=== PATIENT | female | born 2000 | race American Indian/Alaskan Native ===

== ENCOUNTER 2024-09-28 20:47 | Emergency (ER) | payer SELFPAY ==
[2024-09-28 20:57] VITALS: BP 111/61; PULSE 135; RESP 16; TEMP 37.7; O2SAT 100
--- NOTE | 2024-09-28 21:20 | ED_ITS ---
HPI - General Adult General Chief complaint: Fever Stated complaint: Fever, sent from [facility]-Rash Time Seen by Provider: 09/28/24 21:15 Source: patient Mode of arrival: ambulatory Limitations: no limitations History of Present Illness HPI narrative: This is a 24-year-old female who presents to the ED for chief complaint of fever and rash onset x1 day. Patient states that she was seen in urgent care today who referred her over to the ER due to having the fever along with the rash to the face, arms, legs. States that she just finished a course of Bactrim yesterday for a left breast cellulitis that was diagnosed 10 days ago. Denies recent travel. She is a local student and states that she has fully up-to-date vaccinations. Denies mucosal involvement of her rash or any rash to the groin. States she did have 1 episode of vomiting yesterday but no further nausea or diarrhea. States this started with a fever of 102? F yesterday and then started noticing rash to the face, seemingly spreading to the arms and legs. Related Data Allergies Allergy/AdvReac Type Severity Reaction Status Date / Time No Known Allergies Allergy Verified 09/28/24 20:48 Review of Systems 2 Review of Systems: All systems as dictated in HPI Exam 2 Narrative: GENERAL: Well-appearing, well-nourished, and in no acute distress. HEAD: Normocephalic, atraumatic. EYES: PERRLA and EOMI. ENT: Nares clear, no rhinorrhea or epistaxis. Mucous membranes moist. Oropharynx without tonsillar hypertrophy exudate or other lesions. NECK: Supple. No adenopathy or masses. CHEST: No respiratory distress. Clear to auscultation. No wheezes rales or rhonchi HEART: Mildly tachycardic rate and regular rhythm. No murmur heard. Normal peripheral pulses. ABDOMEN: Soft, nontender, nondistended, normal active bowel sounds. MSK: Normal range of motion. No edema. SKIN: Maculopapular morbilliform rash to the face, upper torso, back, upper arms. It is blanching and some splotchy overall. There is minimal to no rash to the abdomen or legs. No tenderness. No mucosal involvement of the rash on the face. NEURO: Alert and oriented x4. No focal deficits. PSYCH: Normal mood and affect. Course Vital Signs Vital signs: Vital Signs Temperature 100 F H 09/28/24 20:57 Pulse Rate 135 H 09/28/24 20:57 Respiratory Rate 16 09/28/24 20:57 Blood Pressure 111/61 09/28/24 20:57 Pulse Oximetry 100 09/28/24 20:57 Oxygen Delivery Room Air 09/28/24 20:57 Temperature 100 F H 09/28/24 20:57 Pulse Rate 101 H 09/28/24 22:12 Respiratory Rate 16 09/28/24 22:12 Blood Pressure 105/73 09/28/24 22:12 Pulse Oximetry 100 09/28/24 22:15 Oxygen Delivery Room Air 09/28/24 20:57 Medical Decision Making MDM Narrative Medical decision making narrative: This is a 24-year-old female who presents to the ED for chief complaint of fever, rash fractures complaining Bactrim prescription. Vitals arrival do show tachycardia and elevated temperature of a 100? F. exam remarkable for the above with maculopapular, morbilliform rash to the face, upper torso and upper arms. Does not appear to be erythroderma. Does not appear to involve mucosal surfaces. She does not appear toxic or acutely ill, resting comfortably. Lab work does show leukopenia report count of 2.4. No eosinophilia or other abnormalities on the CBC differential. Low concern for DRESS syndrome CRP only slightly elevated at 1.5. CMP shows slight elevation in AST and ALT, however otherwise unremarkable. Presentation most likely consistent with drug eruption morbilliform rash due to Bactrim. This should resolve over the next several days with previous completion of the Bactrim prescription. Rx for topical steroids given for rash. Patient will be discharged in stable condition. Supportive measures discussed and return precautions given. Patient is understanding and agreeable with plan for discharge with PCP follow-up. Vital Signs Vital Signs: Vital Signs Temperature 100 F H 09/28/24 20:57 Pulse Rate 135 H 09/28/24 20:57 Respiratory Rate 16 09/28/24 20:57 Blood Pressure 111/61 09/28/24 20:57 Pulse Oximetry 100 09/28/24 20:57 Oxygen Delivery Room Air 09/28/24 20:57 Temperature 100 F H 09/28/24 20:57 Pulse Rate 101 H 09/28/24 22:12 Respiratory Rate 16 09/28/24 22:12 Blood Pressure 105/73 09/28/24 22:12 Pulse Oximetry 100 09/28/24 22:15 Oxygen Delivery Room Air 09/28/24 20:57 Lab Data 09/28/24 21:49 09/28/24 21:49 Labs: Lab Results 09/28/24 09/28/24 09/28/24 Range/Units 21:49 22:49 22:52 WBC 2.4 L (4.5-10.0) K/mm3 RBC 4.73 (4.2-5.4) M/mm3 Hgb 11.4 L (12.0-15.0) g/dL Hct 36.0 L (37.0-47.0) % MCV 76.1 L (80-100) fl MCH 24.1 L (26-34) pg MCHC 31.7 L (32-36) g/dl RDW 13.8 (11.5-14.5) % Plt Count 127 L (150-375) k/mm3 MPV 10.4 (7.4-10.4) fl Immature Gran % (Auto) 0.4 (0-0.5) % Neut % (Auto) 70.4 (45.5-73.1) % Lymph % (Auto) 25.0 (18.3-44.2) % [place] % (Auto) 3.8 (2.6-8.5) % Eos % (Auto) 0.4 (0-4.4) % Baso % (Auto) 0.0 L (0.2-1.2) % Lymph # (Auto) 0.60 L (0.9-3.2) K/mm3 [place] # (Auto) 0.1 (0.1-0.6) K/mm3 Eos # (Auto) 0.0 (0-0.3) K/mm3 Baso # (Auto) 0.0 (0.0-0.1) K/mm3 Abs Immat Gran (auto) 0.01 (0.00-0.031) K/mm3 Absolute Neuts (auto) 1.7 (1.3-6.7) K/mm3 Absolute Nucleated RBC 0.000 (0.0-0.012) K/mm3 Nucleated RBC % 0.0 (0.0-0.2) % Sodium 132 L (137-145) mmol/L Potassium 3.7 (3.4-5.0) mmol/L Chloride 99 (98-107) mmol/L Carbon Dioxide 23 (22-30) mmol/L Anion Gap 10 (4-12) mmol/L BUN 9 (7-17) mg/dL Creatinine 0.74 (0.7-1.0) mg/dL Estim Creat Clear Calc 90 ml/min Estimated GFR > 60 (59 - ) Glucose 114 H (65-110) mg/dL Calcium 8.7 (8.4-10.2) mg/dL Total Bilirubin 0.2 (0.2-1.3) mg/dL AST 81 H (14-36) U/L ALT 42 H (6-35) U/L Alkaline Phosphatase 57 (38-126) U/L C-Reactive Protein 1.5 H (<1.0) mg/dL Total Protein 8.0 (6.3-8.2) g/dL Albumin 4.1 (3.5-5.1) g/dL Urine Color Yellow (Yellow) Urine Appearance Clear (Clear) Urine pH 6.5 (5.0-9.0) Ur Specific [place] 1.007 (1.001-1.035) Urine Protein Negative (Negative) mg/dL Urine Glucose (UA) Negative (Negative) mg/dL Urine Ketones Negative (Negative) mg/dL Ur Blood (Man) Negative (Negative) Urine Nitrate Negative (Negative) Urine Bilirubin Negative (Negative) Urine Urobilinogen 0.2 (<2.0) mg/dL Leukocyte Esterase Rfl Negative (Negative) LOU/UL POC Urine HCG, Qual Negative (Negative) Discharge Plan Discharge Clinical Impression: Adverse drug reaction Patient Disposition: Home, Self-Care Condition: Stable Instructions: Antibiotic Form Additional Instructions: Your exam today is probably indicating a drug reaction to the Bactrim. Please use a topical steroid cream for itchy areas of rash. This rash should self resolve as long as you are not taking anymore Bactrim(trimethoprim sulfamethoxazole). Continue taking Tylenol 500 mg and ibuprofen 600 mg every 6 hours as needed for fevers. Follow-up with primary care doctor on this issue. If you have any new or worsening symptoms please return to the ER for further evaluation. Patient Language: Romanian Prescriptions: New triamcinolone acetonide 0.1 % cream 1 applic topical BID Qty: 15 0RF Follow-up/Referrals: PHYSICIAN,PASTRY WRAPPER [Primary Care Provider] - Time of Disposition: 23:18
--- OUTSIDE RECORDS SUMMARY | 2024-09-28 21:23 | XMS_ITS | Encounter Summary ---
Author Organization [facility] Healthcare Address [address] [place] [address] Care Team Providers Care Kindergartners Helper Name Role Phone Unknown, Notinfile Primary Care Provider Unavail able Reason for Visit * Reason Comments Fever Body aches, Fever st arted last PM and hives on face, hands and legs started yesterday. Fever up to 103 Encounter Details Date Type Department Care Team (Late st Contact Info) Description 09/28/2024 6:15 PM RARE/ENDANGERED SPECIES SPECIALIST Office Visit [facility] Medical [facility] Convenient Care at [address] [address] Mynor Morillo NP [address] [place] [address] [address] [place] [address] Fever, unspecified fever cause (Primary Dx) Social History Tobacco Use Types Packs/Day Years Used Date Smoking Tobacco: Never Assessed Comments Unknown Sex and Gender Information Value Date Recorded Sex Assigned at Not on file Legal Sex Female 7:34 PM RARE/ENDANGERED SPECIES SPECIALIST Gender Identity Not on file Sexual Orientation Not on file documented as of this encounter Last Filed Vital Signs Vital Sign Reading Time Taken Comments Blood Pressure 118/72 09/28/2024 6:00 PM RARE/ENDANGERED SPECIES SPECIALIST Pulse 128 09/28/2024 6:00 PM RARE/ENDANGERED SPECIES SPECIALIST Temperature 37.8 C (100.1 F) 09/28/2024 6:00 PM RARE/ENDANGERED SPECIES SPECIALIST Respiratory Rate 20 09/28/2024 6:00 PM RARE/ENDANGERED SPECIES SPECIALIST Oxygen Saturation 98% 09/28/2024 6:00 PM RARE/ENDANGERED SPECIES SPECIALIST Inhaled Oxygen Concentration - - Weight 71.7 kg (158 lb) 09/28/2024 6:00 PM RARE/ENDANGERED SPECIES SPECIALIST Height - - Body Mass Index - - documented in this encounter Patient Instructions * Patient Instructions* Mynor Morillo NP - 09/28/2024 6:15 PM RARE/ENDANGERED SPECIES SPECIALIST Results for orders placed or performed in visit on 09/28/24 POC Influenza A/B, COVID-19 antigen Collection Time: 09/28/24 6:22 PM Result Value Ref Range Influenza A Ag, POC Negative Negative Influenza B Ag, POC Negative Negative COVID-19 Ag POC Presumptive Negative Presumptive Negative, Invalid POCT rapid strep A Collection Time: 09/28/24 6:22 PM Result Value Ref Range Rapid Strep A, POC Negative Negative Recommend pt go to ED for further evaluation due to temp of 102F and rash. /ENDANGERED SPECIES SPECIALIST documented in this encounter Plan of Treatment Not on file documented as of this encounter Procedures Procedure Name Priority Date/Time Associated Diagnosis Comments POC INFLUENZA A/B, COVID-19 ANTIGEN Routine 09/28/2024 6:22 PM RARE/ENDANGERED SPECIES SPECIALIST Fever, unspecified fever cause POCT RAPID STREP Routine 09/28/2024 6:22 PM RARE/ENDANGERED SPECIES SPECIALIST Fever, unspecified fever cause documented in this encounter Results * POCT rapid strep A (09/28/2024 6:22 PM RARE/ENDANGERED SPECIES SPECIALIST) Rapid Strep A, POC Negative Negative Swab 09/28/2024 6:22 PM RARE/ENDANGERED SPECIES SPECIALIST Mynor Morillo NP POINT OF CARE TEST ORDERABLES F inal Result * POC Influenza A/B, COVID-19 antigen (09/28/2024 6:22 PM RARE/ENDANGERED SPECIES SPECIALIST) Influenza A Ag, POC Negative Negative [facility] Influenza B Ag, POC Negative Negative [facility] COVID-19 Ag POC Presumptive Negative Presumptive Negative, Invalid [facility] Nasal 09/28/2024 6:22 PM RARE/ENDANGERED SPECIES SPECIALIST us Mynor Morillo NP POINT OF CARE TEST ORDERABLES F inal Result [facility] [address] [place] [address] documented in this encounter Visit Diagnoses Diagnosis Fever, unspecified fever cause- Primary documented in this encounter Additional Health Concerns Infection Onset Date Last Indicated Resolved Time COVID: Suspected 09/28/2024 09/28/2024 09/28/2024 6:23 PM RARE/ENDANGERED SPECIES SPECIALIST documented as of this encounter Care Teams Kindergartners Helper Relationship Specialty Start Date End Date Unknown, Notinfile PCP - General 09/17/24 documented as of this encounter
--- OUTSIDE RECORDS SUMMARY | 2024-09-28 21:23 | XMS_ITS | Clinical Summary ---
Author Organization [address] [address] Care Team Providers Care Knuckle Strap Sewer Name Role Phone Unknown, Notinfile Primary Care Provider Unavail able Allergies No known active allergies Medications sulfamethoxazol e-trimethoprim (BACTRIM DS) 800-160 mg per tabletIndicatio ns:Cellulitis of left breast Take 1 tablet by mouth 2 (two) times a day for 10 days 20 tablet 09/17/2024 Active Problems No known active problems Encounters Date Type Department Care Team Description 09/28/2024 6:15 PM MEDICAL DRIVER Office Visit [facility] Medical [facility] Convenient Care at [address] [address] Mynor Morillo NP Fever, unspecified fever cause (Primary Dx) 09/17/2024 7:45 PM MEDICAL DRIVER Office Visit [facility] Care at [address] [address] Vikki Ratliff NP Cellulitis of left breast (Primary Dx) from Last 3 Months Social History Tobacco Use Types Packs/Day Years Used Date Smoking Tobacco: Never Assessed Comments Unknown Sex and Gender Information Value Date Recorded Sex Assigned at Not on file Legal Sex Female 7:34 PM MEDICAL DRIVER Gender Identity Not on file Sexual Orientation Not on file Obstetrics History Last Filed Vital Signs Vital Sign Reading Time Taken Comments Blood Pressure 118/72 09/28/2024 6:00 PM MEDICAL DRIVER Pulse 128 09/28/2024 6:00 PM MEDICAL DRIVER Temperature 37.8 C (100.1 F) 09/28/2024 6:00 PM MEDICAL DRIVER Respiratory Rate 20 09/28/2024 6:00 PM MEDICAL DRIVER Oxygen Saturation 98% 09/28/2024 6:00 PM MEDICAL DRIVER Inhaled Oxygen Concentration - - Weight 71.7 kg (158 lb) 09/28/2024 6:00 PM MEDICAL DRIVER Height - - Body Mass Index - - Plan of Treatment Health Maintenance Due Date Last Done Comments Cervical Cancer Screening 2000 Depression Screening 2000 Hepatitis C Screening 2000 DTaP/Tdap/Td Vaccine (1 - Tdap) 2011 Varicella Vaccines (1 of 2 - 13+ 2-dose series) 2013 HPV Vaccines (1 - 3-dose series) 2015 Hepatitis B Screening 2018 Regular Well Visit/Exam 18-64 2018 Influenza Vaccine (#1) 2024 Pneumococcal vaccine <65 Aged Out No longer eligible based on patient's age to complete this topic Procedures Procedure Name Priority Date/Time Associated Diagnosis Comments POCT RAPID STREP Routine 09/28/2024 6:22 PM MEDICAL DRIVER Fever, unspecified fever cause POC INFLUENZA A/B, COVID-19 ANTIGEN Routine 09/28/2024 6:22 PM MEDICAL DRIVER Fever, unspecified fever cause from Last 3 Months Results * POC Influenza A/B, COVID-19 antigen (09/28/2024 6:22 PM MEDICAL DRIVER) Influenza A Ag, POC Negative Negative [facility] Influenza B Ag, POC Negative Negative [facility] COVID-19 Ag POC Presumptive Negative Presumptive Negative, Invalid [facility] Nasal 09/28/2024 6:22 PM MEDICAL DRIVER Mynor Morillo NP POINT OF CARE TEST ORDERABLES F inal Result [facility] [address] [place] [address] * POCT rapid strep A (09/28/2024 6:22 PM MEDICAL DRIVER) Rapid Strep A, POC Negative Negative Swab 09/28/2024 6:22 PM MEDICAL DRIVER Ranita Morillo INSPECTOR BULLET SLUGS POINT OF CARE TEST ORDERABLES F inal Result from Last 3 Months Insurance [facility] [employer] Care Teams Knuckle Strap Sewer Relationship Specialty Start Date End Date Unknown, Notinfile PCP - General 09/17/24
--- OUTSIDE RECORDS SUMMARY | 2024-09-28 21:23 | XMS_ITS | Referral Summary ---
Author Organization [address] [address] Care Team Providers Care Drying Frame Operator Name Role Phone Unknown, Notinfile Primary Care Provider Unavail able Encounters Date Type Department Care Team Description 09/28/2024 6:15 PM DIRECTOR OF LABOR RELATIONS Office Visit [facility] Medical [facility] Convenient Care at [address] [address] Mynor Morillo NP Fever, unspecified fever cause (Primary Dx) 09/17/2024 7:45 PM DIRECTOR OF LABOR RELATIONS Office Visit [facility] Convenient Care at [address] [address] Vikki Ratliff NP Cellulitis of left breast (Primary Dx) from Last 3 Months Allergies No known active allergies Medications sulfamethoxazol e-trimethoprim (BACTRIM DS) 800-160 mg per tabletIndicatio ns:Cellulitis of left breast Take 1 tablet by mouth 2 (two) times a day for 10 days 20 tablet 09/17/2024 Active Problems No known active problems Social History Tobacco Use Types Packs/Day Years Used Date Smoking Tobacco: Never Assessed Comments Unknown Sex and Gender Information Value Date Recorded Sex Assigned at Not on file Legal Sex Female 7:34 PM DIRECTOR OF LABOR RELATIONS Gender Identity Not on file Sexual Orientation Not on file Last Filed Vital Signs Vital Sign Reading Time Taken Comments Blood Pressure 118/72 09/28/2024 6:00 PM DIRECTOR OF LABOR RELATIONS Pulse 128 09/28/2024 6:00 PM DIRECTOR OF LABOR RELATIONS Temperature 37.8 C (100.1 F) 09/28/2024 6:00 PM DIRECTOR OF LABOR RELATIONS Respiratory Rate 20 09/28/2024 6:00 PM DIRECTOR OF LABOR RELATIONS Oxygen Saturation 98% 09/28/2024 6:00 PM DIRECTOR OF LABOR RELATIONS Inhaled Oxygen Concentration - - Weight 71.7 kg (158 lb) 09/28/2024 6:00 PM DIRECTOR OF LABOR RELATIONS Height - - Body Mass Index - - Plan of Treatment Not on file Procedures Procedure Name Priority Date/Time Associated Diagnosis Comments POCT RAPID STREP Routine 09/28/2024 6:22 PM DIRECTOR OF LABOR RELATIONS Fever, unspecified fever cause POC INFLUENZA A/B, COVID-19 ANTIGEN Routine 09/28/2024 6:22 PM DIRECTOR OF LABOR RELATIONS Fever, unspecified fever cause from Last 3 Months Results * POC Influenza A/B, COVID-19 antigen (09/28/2024 6:22 PM DIRECTOR OF LABOR RELATIONS) Influenza A Ag, POC Negative Negative [facility] Influenza B Ag, POC Negative Negative [facility] COVID-19 Ag POC Presumptive Negative Presumptive Negative, Invalid [facility] Nasal 09/28/2024 6:22 PM DIRECTOR OF LABOR RELATIONS Mynor Morillo NP POINT OF CARE TEST ORDERABLES F inal Result [facility] [address] [place] [address] * POCT rapid strep A (09/28/2024 6:22 PM DIRECTOR OF LABOR RELATIONS) Rapid Strep A, POC Negative Negative Swab 09/28/2024 6:22 PM DIRECTOR OF LABOR RELATIONS Mynor Morillo BOTTOM CRANE OPERATOR POINT OF CARE TEST ORDERABLES F inal Result from Last 3 Months Insurance [employer] [facility] HMO/PPO Address: [facility] [id number] [place] [address] Care Teams Drying Frame Operator Relationship Specialty Start Date End Date Unknown, Notinfile PCP - General 09/17/24
[2024-09-28] MEDS: diphenhydrAMINE HCl INJ 50 MG/ML VIAL 25 MG IV PUSH (21:52)
[2024-09-28] MEDS: SODIUM CHLORIDE 0.9% IV 1,000 ML 999 ML IV CONT (21:52)
[2024-09-28 21:54] LABS: Eosinophils Percent Auto 0.4 % (0-4.4); Hemoglobin 11.4 g/dL (12.0-15.0); Immature Granulocyte Absolute 0.01 K/mm3 (0.00-0.031); Immature Granulocyte Percent A 0.4 % (0-0.5); Mean Corpuscular HGB Conc 31.7 g/dl (32-36); Mean Corpuscular Hemoglobin 24.1 pg (26-34); Mean Corpuscular Volume 76.1 fl (80-100); Mean Platelet Volume 10.4 fl (7.4-10.4); Monocytes Absolute Auto 0.1 K/mm3 (0.1-0.6); Monocytes Percent Auto 3.8 % (2.6-8.5); Neutrophils Absolute Auto 1.7 K/mm3 (1.3-6.7); Neutrophils Percent Auto 70.4 % (45.5-73.1); Platelet Count Result 127 k/mm3 (150-375); Red Blood Count 4.73 M/mm3 (4.2-5.4); Red Cell Distribution Width 13.8 % (11.5-14.5); White Blood Count 2.4 K/mm3 (4.5-10.0)
[2024-09-28 22:07] LABS: Alanine Aminotransferase 42 U/L (6-35); Albumin Level 4.1 g/dL (3.5-5.1); Alkaline Phosphatase 57 U/L (38-126); Anion Gap 10 mmol/L (4-12); Aspartate Amino Transferase 81 U/L (14-36); Bilirubin,Total 0.2 mg/dL (0.2-1.3); Blood Urea Nitrogen 9 mg/dL (7-17); Calcium 8.7 mg/dL (8.4-10.2); Carbon Dioxide 23 mmol/L (22-30); Chloride 99 mmol/L (98-107); Estimated CRCL calculation 90 ml/min; Estimated Glomerular Filt Rate > 60; Glucose 114 mg/dL (65-110); Potassium 3.7 mmol/L (3.4-5.0); Sodium 132 mmol/L (137-145)
[2024-09-28 22:12] VITALS: BP 105/73; PULSE 101; RESP 16; O2SAT 100
[2024-09-28 22:15] VITALS: O2SAT 100
[2024-09-28 22:21] LABS: CRP 1.5 mg/dL (<1.0)
[2024-09-28 22:54] LABS: BEDSIDEPREGUCG Negative (Negative)
[2024-09-28 22:59] LABS: Add Urine Microscopic? NO; Appearance Urine Clear (Clear); Bilirubin Urine Negative (Negative); Blood Urine Negative (Negative); Color Urine Yellow (Yellow); Glucose Urine UA Negative (Negative); Ketones Urine Negative (Negative); Leukocyte Esterase Ur Negative LEU/UL (Negative); Nitrate Urine Negative (Negative); Protein Urine Negative (Negative); Specific Grav Ur 1.007 (1.001-1.035); Urobilinogen Urine 0.2 mg/dL (<2.0); pH Urine 6.5 (5.0-9.0)
== END 2024-09-28 23:49 | disposition home or self-care (01) ==
PROVIDERS: Emergency Provider Physician Assistant
DX: T36.8X5A Adverse effect of other systemic antibiotics, initial encounter (principal)
CPT/HCPCS: 36415; 80053; 81003; 81025; 85025; 86140; 96361; 96374; 99284; J1200; J7030

== ENCOUNTER 2024-10-12 04:09 | Emergency (ER) | payer SELFPAY ==
--- NOTE | ~2024-10-12 | XR_ITS ---
EXAMINATION: XR chest 1V 10/12/2024 05:01 INDICATION: Cough PROCEDURE: AP portable chest COMPARISON: No prior studies for comparison. FINDINGS: The lungs are clear. The cardiomediastinal silhouette is within normal limits. There are no pleural effusions. There is no pneumothorax suspected. IMPRESSION: 1: NO ACUTE CARDIOPULMONARY DISEASE. Reviewed, dictated and finalized at location B.
--- NOTE | ~2024-10-12 | CT_ITS ---
EXAMINATION: CT brain wo con DATE: 10/12/2024 04:54 INDICATION: Altered mental status TECHNIQUE: Computed tomography (CT) of the head was performed without intravenous contrast. The dose- length product was 605.33 mGy-cm. Automated exposure control and iterative reconstruction technique w ere employed. COMPARISON: None FINDINGS: No acute intracranial hemorrhage, infarction, mass or mass effect. No ventriculomegaly or m idline shift. Basilar cisterns are patent. Paranasal sinuses and mastoids are pneumatized. No depress ed skull fractures. IMPRESSION: 1. No acute intracranial abnormality. Reviewed, dictated and finalized at location B.
--- OUTSIDE RECORDS SUMMARY | 2024-10-12 04:12 | XMS_ITS | Clinical Summary ---
Author Organization [address] [address] Care Team Providers Care Jointer Machine Name Role Phone Unknown, Notinfile Primary Care Provider Unavail able Allergies No known active allergies Medications sulfamethoxazol e-trimethoprim (BACTRIM DS) 800-160 mg per tabletIndicatio ns:Cellulitis of left breast Take 1 tablet by mouth 2 (two) times a day for 10 days 20 tablet 09/17/2024 Active Problems No known active problems Encounters Date Type Department Care Team Description 09/28/2024 6:15 PM CLUB ROOM ATTENDANT Office Visit [facility] Medical Group Convenient Care at [address] [address] Mynor Morillo NP Fever, unspecified fever cause (Primary Dx) 09/17/2024 7:45 PM CLUB ROOM ATTENDANT Office Visit [facility] Care at [address] [address] Vikki Ratliff NP Cellulitis of left breast (Primary Dx) from Last 3 Months Social History Tobacco Use Types Packs/Day Years Used Date Smoking Tobacco: Never Assessed Comments Unknown Sex and Gender Information Value Date Recorded Sex Assigned at Not on file Legal Sex Female 7:34 PM CLUB ROOM ATTENDANT Gender Identity Not on file Sexual Orientation Not on file Obstetrics History Last Filed Vital Signs Vital Sign Reading Time Taken Comments Blood Pressure 118/72 09/28/2024 6:00 PM CLUB ROOM ATTENDANT Pulse 128 09/28/2024 6:00 PM CLUB ROOM ATTENDANT Temperature 37.8 C (100.1 F) 09/28/2024 6:00 PM CLUB ROOM ATTENDANT Respiratory Rate 20 09/28/2024 6:00 PM CLUB ROOM ATTENDANT Oxygen Saturation 98% 09/28/2024 6:00 PM CLUB ROOM ATTENDANT Inhaled Oxygen Concentration - - Weight 71.7 kg (158 lb) 09/28/2024 6:00 PM CLUB ROOM ATTENDANT Height - - Body Mass Index - [...] POCT RAPID STREP Routine 09/28/2024 6:22 PM CLUB ROOM ATTENDANT Fever, unspecified fever cause POC INFLUENZA A/B, COVID-19 ANTIGEN Routine 09/28/2024 6:22 PM CLUB ROOM ATTENDANT Fever, unspecified fever cause from Last 3 Months Results * POC Influenza A/B, COVID-19 antigen (09/28/2024 6:22 PM CLUB ROOM ATTENDANT) Influenza A Ag, POC Negative Negative [facility] [place] [facility] Influenza B Ag, POC Negative Negative [facility] COVID-19 Ag POC Presumptive Negative Presumptive Negative, Invalid [facility] Nasal 09/28/2024 6:22 PM CLUB ROOM ATTENDANT Mynor Morillo NP POINT OF CARE TEST ORDERABLES F inal Result [facility] [address] [place] [address] * POCT rapid strep A (09/28/2024 6:22 PM CLUB ROOM ATTENDANT) Rapid Strep A, POC Negative Negative Swab 09/28/2024 6:22 PM CLUB ROOM ATTENDANT Ranita Morillo NUTRITION PARTNER POINT OF CARE TEST ORDERABLES F inal Result from Last 3 Months Insurance [facility] [employer] [facility] HMO/PPO Address: [facility] [id number] [place] [address] Care Teams Jointer Machine Relationship Specialty Start Date End Date Unknown, Notinfile PCP - General 09/17/24
--- OUTSIDE RECORDS SUMMARY | 2024-10-12 04:12 | XMS_ITS | Referral Summary ---
Author Organization [address] [address] Care Team Providers Care Denture Packer Name Role Phone Unknown, Notinfile Primary Care Provider Unavail able Encounters Date Type Department Care Team Description 09/28/2024 6:15 PM TRAINING EXECUTIVE Office Visit [facility] Medical [facility] Convenient Care at [address] [address] Mynor Morillo NP Fever, unspecified fever cause (Primary Dx) 09/17/2024 7:45 PM TRAINING EXECUTIVE Office Visit [facility] Convenient Care at [address] [address] Vikki Ratliff NP Cellulitis of [...] on file Legal Sex Female 7:34 PM TRAINING EXECUTIVE Gender Identity Not on file Sexual Orientation Not on file Last Filed Vital Signs Vital Sign Reading Time Taken Comments Blood Pressure 118/72 09/28/2024 6:00 PM TRAINING EXECUTIVE Pulse 128 09/28/2024 6:00 PM TRAINING EXECUTIVE Temperature 37.8 C (100.1 F) 09/28/2024 6:00 PM TRAINING EXECUTIVE Respiratory Rate 20 09/28/2024 6:00 PM TRAINING EXECUTIVE Oxygen Saturation 98% 09/28/2024 6:00 PM TRAINING EXECUTIVE Inhaled Oxygen Concentration - - Weight 71.7 kg (158 lb) 09/28/2024 6:00 PM TRAINING EXECUTIVE Height - - Body Mass Index - - Plan of Treatment Not on file Procedures Procedure Name Priority Date/Time Associated Diagnosis Comments POCT RAPID STREP Routine 09/28/2024 6:22 PM TRAINING EXECUTIVE Fever, unspecified fever cause POC INFLUENZA A/B, COVID-19 ANTIGEN Routine 09/28/2024 6:22 PM TRAINING EXECUTIVE Fever, unspecified fever cause from Last 3 Months Results * POC Influenza A/B, COVID-19 antigen (09/28/2024 6:22 PM TRAINING EXECUTIVE) Influenza A Ag, POC Negative Negative [facility] Influenza B Ag, POC Negative Negative [facility] COVID-19 Ag POC Presumptive Negative Presumptive Negative, Invalid [facility] Nasal 09/28/2024 6:22 PM TRAINING EXECUTIVE Mynor Morillo NP POINT OF CARE TEST ORDERABLES F inal Result [facility] [address] [place] [address] * POCT rapid strep A (09/28/2024 6:22 PM TRAINING EXECUTIVE) Rapid Strep A, POC Negative Negative Swab 09/28/2024 6:22 PM TRAINING EXECUTIVE Mynor Morillo STRADDLE BUG POINT OF CARE TEST ORDERABLES F inal Result from Last 3 Months Insurance [employer] [facility] HMO/PPO Address: [facility] [id number] [place] [address] Care Teams Denture Packer Relationship Specialty Start Date End Date Unknown, Notinfile PCP - General 09/17/24
[2024-10-12 04:16] VITALS: BP 135/90; PULSE 123; RESP 16; TEMP 36.8; O2SAT 98
--- NOTE | 2024-10-12 04:19 | ECG_ITS ---
Test Date: 2024-10-12 05:00:59 Measurements Intervals [place] Rate: 128 P: 38 WI: 149 QRS: 48 QRSD: 100 T: -17 QT: 334 QTc: 488 Interpretive Statements SINUS TACHYCARDIA NONSPECIFIC T-WAVE ABNORMALITY No previous ECG available for comparison Electronically Signed On 10-12-2024 17:35:16 CDT by Eran Manjarrez M.D.
--- OUTSIDE RECORDS SUMMARY | 2024-10-12 04:43 | XMS_ITS | Clinical Summary ---
Author Organization [address] [address] Care Team Providers Care Lithographic Press Operator Apprentice Name Role Phone Unknown, Notinfile Primary Care Provider Unavail able Allergies No known active allergies Medications sulfamethoxazol e-trimethoprim (BACTRIM DS) 800-160 mg per tabletIndicatio ns:Cellulitis of left breast Take 1 tablet by mouth 2 (two) times a day for 10 days 20 tablet 09/17/2024 Active Problems No known active problems Encounters Date Type Department Care Team Description 09/28/2024 6:15 PM CROWN ATTACHER Office Visit [facility] Care at [address] [address] Mynor Morillo NP Fever, unspecified fever cause (Primary Dx) 09/17/2024 7:45 PM CROWN ATTACHER Office Visit [facility] Care at [address] [phone] Vikki Ratliff NP Cellulitis of left breast (Primary Dx) from Last 3 Months Social History Tobacco Use Types Packs/Day Years Used Date Smoking Tobacco: Never Assessed Comments Unknown Sex and Gender Information Value Date Recorded Sex Assigned at Not on file Legal Sex Female 7:34 PM CROWN ATTACHER Gender Identity Not on file Sexual Orientation Not on file Obstetrics History Last Filed Vital Signs Vital Sign Reading Time Taken Comments Blood Pressure 118/72 09/28/2024 6:00 PM CROWN ATTACHER Pulse 128 09/28/2024 6:00 PM CROWN ATTACHER Temperature 37.8 C (100.1 F) 09/28/2024 6:00 PM CROWN ATTACHER Respiratory Rate 20 09/28/2024 6:00 PM CROWN ATTACHER Oxygen Saturation 98% 09/28/2024 6:00 PM CROWN ATTACHER Inhaled Oxygen Concentration - - Weight 71.7 kg (158 lb) 09/28/2024 6:00 PM CROWN ATTACHER Height - - Body Mass Index - [...] POCT RAPID STREP Routine 09/28/2024 6:22 PM CROWN ATTACHER Fever, unspecified fever cause POC INFLUENZA A/B, COVID-19 ANTIGEN Routine 09/28/2024 6:22 PM CROWN ATTACHER Fever, unspecified fever cause from Last 3 Months Results * POC Influenza A/B, COVID-19 antigen (09/28/2024 6:22 PM CROWN ATTACHER) Influenza A Ag, POC Negative Negative [facility] ED[facility] Influenza B Ag, POC Negative Negative [facility] ED[facility] COVID-19 Ag POC Presumptive Negative Presumptive Negative, Invalid [facility] Nasal 09/28/2024 6:22 PM CROWN ATTACHER Mynor Morillo NP POINT OF CARE TEST ORDERABLES F inal Result [facility] EDW [address] [place] [address] * POCT rapid strep A (09/28/2024 6:22 PM CROWN ATTACHER) Rapid Strep A, POC Negative Negative Swab 09/28/2024 6:22 PM CROWN ATTACHER Ranita Morillo REPAIR CLERK POINT OF CARE TEST ORDERABLES F inal Result from Last 3 Months Insurance [facility] [employer] [facility] HMO/PPO Address: [facility] [address] [place] [address] Care Teams Lithographic Press Operator Apprentice Relationship Specialty Start Date End Date Unknown, Notinfile PCP - General 09/17/24
--- OUTSIDE RECORDS SUMMARY | 2024-10-12 04:43 | XMS_ITS | Referral Summary ---
Author Organization [address] [address] Care Team Providers Care Management Assistant Name Role Phone Unknown, Notinfile Primary Care Provider Unavail able Encounters Date Type Department Care Team Description 09/28/2024 6:15 PM CASINO GAMING INSPECTOR Office Visit [facility] Medical [facility] Con[facility]ient Care at [address] [address] Mynor Morillo NP Fever, unspecified fever cause (Primary Dx) 09/17/2024 7:45 PM CASINO GAMING INSPECTOR Office Visit [facility] Convenient Care at [address] [address] Vikki Ratliff NP Cellulitis of [...] on file Legal Sex Female 7:34 PM CASINO GAMING INSPECTOR Gender Identity Not on file Sexual Orientation Not on file Last Filed Vital Signs Vital Sign Reading Time Taken Comments Blood Pressure 118/72 09/28/2024 6:00 PM CASINO GAMING INSPECTOR Pulse 128 09/28/2024 6:00 PM CASINO GAMING INSPECTOR Temperature 37.8 C (100.1 F) 09/28/2024 6:00 PM CASINO GAMING INSPECTOR Respiratory Rate 20 09/28/2024 6:00 PM CASINO GAMING INSPECTOR Oxygen Saturation 98% 09/28/2024 6:00 PM CASINO GAMING INSPECTOR Inhaled Oxygen Concentration - - Weight 71.7 kg (158 lb) 09/28/2024 6:00 PM CASINO GAMING INSPECTOR Height - - Body Mass Index - - Plan of Treatment Not on file Procedures Procedure Name Priority Date/Time Associated Diagnosis Comments POCT RAPID STREP Routine 09/28/2024 6:22 PM CASINO GAMING INSPECTOR Fever, unspecified fever cause POC INFLUENZA A/B, COVID-19 ANTIGEN Routine 09/28/2024 6:22 PM CASINO GAMING INSPECTOR Fever, unspecified fever cause from Last 3 Months Results * POC Influenza A/B, COVID-19 antigen (09/28/2024 6:22 PM CASINO GAMING INSPECTOR) Influenza A Ag, POC Negative Negative [facility] Influenza B Ag, POC Negative Negative [facility] COVID-19 Ag POC Presumptive Negative Presumptive Negative, Invalid [facility] Nasal 09/28/2024 6:22 PM CASINO GAMING INSPECTOR Mynor Morillo NP POINT OF CARE TEST ORDERABLES F inal Result [facility] [address] [place] [address] * POCT rapid strep A (09/28/2024 6:22 PM CASINO GAMING INSPECTOR) Rapid Strep A, POC Negative Negative Swab 09/28/2024 6:22 PM CASINO GAMING INSPECTOR Mynor Morillo WEB OFFSET PRESS FEEDER POINT OF CARE TEST ORDERABLES F inal Result from Last 3 Months Insurance [employer] Care Teams Management Assistant Relationship Specialty Start Date End Date Unknown, Notinfile PCP - General 09/17/24
[2024-10-12 04:46] LABS: BEDSIDEPREGUCG Negative (Negative)
[2024-10-12 04:51] LABS: Add Urine Microscopic? NO; Appearance Urine Clear (Clear); Basophils Percent Auto 0.3 % (0.2-1.2); Bilirubin Urine Negative (Negative); Blood Urine Negative (Negative); Color Urine Yellow (Yellow); Glucose Urine UA Negative (Negative); Hematocrit 36.9 % (37.0-47.0); Hemoglobin 11.4 g/dL (12.0-15.0); Immature Granulocyte Absolute 0.02 K/mm3 (0.00-0.031); Immature Granulocyte Percent A 0.2 % (0-0.5); Ketones Urine Negative (Negative); Leukocyte Esterase Ur Negative LEU/UL (Negative); Lymphocytes Absolute Auto 2.07 K/mm3 (0.9-3.2); Lymphocytes Percent Auto 22.7 % (18.3-44.2); Mean Corpuscular HGB Conc 30.9 g/dl (32-36); Mean Corpuscular Hemoglobin 24.2 pg (26-34); Mean Corpuscular Volume 78.3 fl (80-100); Monocytes Absolute Auto 0.7 K/mm3 (0.1-0.6); Monocytes Percent Auto 7.6 % (2.6-8.5); Neutrophils Absolute Auto 6.3 K/mm3 (1.3-6.7); Neutrophils Percent Auto 69.2 % (45.5-73.1); Nitrate Urine Negative (Negative); Platelet Count Result 252 k/mm3 (150-375); Protein Urine Negative (Negative); Red Blood Count 4.71 M/mm3 (4.2-5.4); Red Cell Distribution Width 15.5 % (11.5-14.5); Specific Grav Ur 1.012 (1.001-1.035); Urobilinogen Urine 0.2 mg/dL (<2.0); White Blood Count 9.1 K/mm3 (4.5-10.0); pH Urine 6.5 (5.0-9.0)
[2024-10-12] MEDS: SODIUM CHLORIDE 0.9% IV 1,000 ML 999 ML IV CONT (04:57)
[2024-10-12 05:07] LABS: Amphetamine Screen Urine Negative (Negative); Barbiturate Screen Urine Negative (Negative); Benzodiazepines Screen Urine Negative (Negative); Cannabinoid Screen Urine Negative (Negative); Cocaine Screen Urine Negative (Negative); Methadone Screen Urine Negative (Negative); Opiate Screen Urine Negative (Negative); Phencyclidine Screen Urine Negative (Negative)
[2024-10-12 05:08] LABS: Lactic Acid Reflex 1.1 mmol/L (0.7-2.0)
[2024-10-12 05:09] LABS: Acetaminophen < 10 ug/mL (10-30); Ethanol < 10 mg/dL (<10); Salicylate < 1.0 mg/dL (2-20)
--- NOTE | 2024-10-12 05:10 | ED_ITS ---
HPI - General Adult General Chief complaint: Psychiatric Symptoms <Bolivar Teixeira MD - Last Filed: 10/12/24 06:00> Stated complaint: psych <Bolivar Teixeira MD - Last Filed: 10/12/24 06:00> Time Seen by Provider: 10/12/24 04:18 <Bolivar Teixeira MD - Last Filed: 10/12/24 06:00> History of Present Illness HPI narrative: Patient is a 24-year-old male presents emergency department with chief complaint of possible psychiatric illness. The patient is currently a exchange student from [employer] and reports that she had a relationship that broke up patient reports he has been having anxiety attacks has been feeling very anxious and very shaky the patient has been grinding her teeth and is been not eating and drinking <Bolivar Teixeira MD - Last Filed: 10/12/24 06:00> Related Data Allergies/adverse reactions: Allergies Allergy/AdvReac Type Severity Reaction Status Date / Time sulfamethoxazole (From Allergy Intermediate Rash Verified 09/28/24 23:48 Bactrim) trimethoprim (From Bactrim) Allergy Intermediate Rash Verified 09/28/24 23:48 <Bolivar Teixeira MD - Last Filed: 10/12/24 06:00> Review of Systems 2 Review of Systems: A 10 system review of systems was completed on the patient and is negative except for what is stated in the HPI. Nursing and ancillary documentation was reviewed. <Bolivar Teixeira MD - Last Filed: 10/12/24 06:00> PMFSH Social History Social History: Social History Substance use type: does not use <Bolivar Teixeira MD - Last Filed: 10/12/24 06:00> Exam 2 Narrative: GENERAL: On count, well-nourished, and in no acute distress. HEAD: Normocephalic, atraumatic. EYES: PERRLA and EOMI. ENT: Nares clear, no rhinorrhea or epistaxis. Mucous membranes dry. NECK: Supple. CHEST: Clear to auscultation. No respiratory distress. HEART: Regular rate and rhythm. No murmur heard. Normal peripheral pulses. ABDOMEN: Soft, nontender, nondistended, normal active bowel sounds. EXTREMITIES: Normal range of motion. No edema. SKIN: Warm, dry, no rash. NEURO: No focal deficits. Alert and oriented x3. Does appear to ask unusual questions at times grinding teeth PSYCH: Normal mood and affect. <Bolivar Teixeira MD - Last Filed: 10/12/24 06:00> Course Reevaluation(s) Reevaluation #1: Patient care was signed out to me by the overnight physician. Plan disposition was evaluation by crisis. Patient was medically cleared overnight. At time of crisis evaluation they felt that she was able to be discharged home and patient did sign a safety agreement. Patient feels comfortable the plan for discharge home. All questions concerns were addressed. <Shaq Vuong MD - Last Filed: 10/12/24 19:13> Vital Signs Vital signs: Vital Signs Temperature 98.3 F 10/12/24 04:16 Pulse Rate 123 H 10/12/24 04:16 Respiratory Rate 16 10/12/24 04:16 Blood Pressure 135/90 10/12/24 04:16 Pulse Oximetry 98 10/12/24 04:16 Oxygen Delivery Room Air 10/12/24 04:16 Temperature 98.3 F 10/12/24 04:16 Pulse Rate 97 10/12/24 09:29 Respiratory Rate 16 10/12/24 09:29 Blood Pressure 104/74 10/12/24 09:29 Pulse Oximetry 100 10/12/24 09:29 Oxygen Delivery Room Air 10/12/24 04:16 <Bolivar Teixeira MD - Last Filed: 10/12/24 06:00> Vital Signs Temperature 98.3 F 10/12/24 04:16 Pulse Rate 123 H 10/12/24 04:16 Respiratory Rate 16 10/12/24 04:16 Blood Pressure 135/90 10/12/24 04:16 Pulse Oximetry 98 10/12/24 04:16 Oxygen Delivery Room Air 10/12/24 04:16 Temperature 98.3 F 10/12/24 04:16 Pulse Rate 97 10/12/24 09:29 Respiratory Rate 16 10/12/24 09:29 Blood Pressure 104/74 10/12/24 09:29 Pulse Oximetry 100 10/12/24 09:29 Oxygen Delivery Room Air 10/12/24 04:16 <Shaq Vuong MD - Last Filed: 10/12/24 19:13> Medical Decision Making MDM Narrative Medical decision making narrative: Differential diagnosis includes anxiety disorder, stress reaction, psychotic break, substance induced mood disorder, electrolyte abnormality, dehydration, Patient was given IV fluids and was given supplemental magnesium as her magnesium was1.7. CT head showed no acute abnormality The patient medically clear for psychiatric evaluation referral transfer and admission <Bolivar Teixeira MD - Last Filed: 10/12/24 06:00> Vital Signs Vital Signs: Vital Signs Temperature 98.3 F 10/12/24 04:16 Pulse Rate 123 H 10/12/24 04:16 Respiratory Rate 16 10/12/24 04:16 Blood Pressure 135/90 10/12/24 04:16 Pulse Oximetry 98 10/12/24 04:16 Oxygen Delivery Room Air 10/12/24 04:16 Temperature 98.3 F 10/12/24 04:16 Pulse Rate 97 10/12/24 09:29 Respiratory Rate 16 10/12/24 09:29 Blood Pressure 104/74 10/12/24 09:29 Pulse Oximetry 100 10/12/24 09:29 Oxygen Delivery Room Air 10/12/24 04:16 <Bolivar Teixeira MD - Last Filed: 10/12/24 06:00> Vital Signs Temperature 98.3 F 10/12/24 04:16 Pulse Rate 123 H 10/12/24 04:16 Respiratory Rate 16 10/12/24 04:16 Blood Pressure 135/90 10/12/24 04:16 Pulse Oximetry 98 10/12/24 04:16 Oxygen Delivery Room Air 10/12/24 04:16 Temperature 98.3 F 10/12/24 04:16 Pulse Rate 97 10/12/24 09:29 Respiratory Rate 16 10/12/24 09:29 Blood Pressure 104/74 10/12/24 09:29 Pulse Oximetry 100 10/12/24 09:29 Oxygen Delivery Room Air 10/12/24 04:16 <Shaq Vuong MD - Last Filed: 10/12/24 19:13> Lab Data Result diagrams: 10/12/24 04:39 10/12/24 04:39 <Bolivar Teixeira MD - Last Filed: 10/12/24 06:00> Labs: Lab Results 10/12/24 10/12/24 10/12/24 Range/Units 04:39 04:40 04:44 WBC 9.1 (4.5-10.0) K/mm3 RBC 4.71 (4.2-5.4) M/mm3 Hgb 11.4 L (12.0-15.0) g/dL Hct 36.9 L (37.0-47.0) % MCV 78.3 L (80-100) fl MCH 24.2 L (26-34) pg MCHC 30.9 L (32-36) g/dl RDW 15.5 H (11.5-14.5) % Plt Count 252 D (150-375) k/mm3 MPV 10.0 (7.4-10.4) fl Immature Gran % (Auto) 0.2 (0-0.5) % Neut % (Auto) 69.2 (45.5-73.1) % Lymph % (Auto) 22.7 (18.3-44.2) % Riley % (Auto) 7.6 (2.6-8.5) % Eos % (Auto) 0.0 (0-4.4) % Baso % (Auto) 0.3 (0.2-1.2) % Lymph # (Auto) 2.07 (0.9-3.2) K/mm3 Riley # (Auto) 0.7 H (0.1-0.6) K/mm3 Eos # (Auto) 0.0 (0-0.3) K/mm3 Baso # (Auto) 0.0 (0.0-0.1) K/mm3 Abs Immat Gran (auto) 0.02 (0.00-0.031) K/mm3 Absolute Neuts (auto) 6.3 (1.3-6.7) K/mm3 Absolute Nucleated RBC 0.000 (0.0-0.012) K/mm3 Nucleated RBC % 0.0 (0.0-0.2) % Sodium 139 (137-145) mmol/L Potassium 3.7 (3.4-5.0) mmol/L Chloride 106 (98-107) mmol/L Carbon Dioxide 23 (22-30) mmol/L Anion Gap 10 (4-12) mmol/L BUN 9 (7-17) mg/dL Creatinine 0.57 L (0.7-1.0) mg/dL Estim Creat Clear Calc 116 ml/min Estimated GFR > 60 (59 - ) Glucose 108 (65-110) mg/dL Lactic Acid 1.1 (0.7-2.0) mmol/L Calcium 9.0 (8.4-10.2) mg/dL Magnesium 1.7 (1.6-2.3) mg/dL Total Bilirubin 0.6 (0.2-1.3) mg/dL AST 30 (14-36) U/L ALT 41 H (6-35) U/L Alkaline Phosphatase 65 (38-126) U/L Total Creatine Kinase 63 (30-135) U/L Total Protein 8.0 (6.3-8.2) g/dL Albumin 4.5 (3.5-5.1) g/dL TSH 2.970 (0.465-4.680) uIU/mL Urine Color Yellow (Yellow) Urine Appearance Clear (Clear) Urine pH 6.5 (5.0-9.0) Ur Specific Benson 1.012 (1.001-1.035) Urine Protein Negative (Negative) mg/dL Urine Glucose (UA) Negative (Negative) mg/dL Urine Ketones Negative (Negative) mg/dL Ur Blood (Man) Negative (Negative) Urine Nitrate Negative (Negative) Urine Bilirubin Negative (Negative) Urine Urobilinogen 0.2 (<2.0) mg/dL Leukocyte Esterase Rfl Negative (Negative) LOU/UL POC Urine HCG, Qual Negative (Negative) Salicylates < 1.0 L (2-20) mg/dL Urine Opiates Screen Negative (Negative) Urine Methadone Screen Negative (Negative) Acetaminophen < 10 L (10-30) ug/mL Ur Barbiturates Screen Negative (Negative) Ur Phencyclidine Scrn Negative (Negative) Ur Amphetamine Screen Negative (Negative) U Benzodiazepines Scrn Negative (Negative) Urine Cocaine Screen Negative (Negative) U Cannabinoids Screen Negative (Negative) Ethyl Alcohol < 10 (<10) mg/dL Influenza A (RT-PCR) Negative (Negative) Influenza B (RT-PCR) Negative (Negative) RSV (RT-PCR) Negative (Negative) SARS-CoV-2 RNA (RT-PCR) Negative (Negative) <Bolivar Teixeira MD - Last Filed: 10/12/24 06:00> Lab Results 10/12/24 10/12/24 10/12/24 Range/Units 04:39 04:40 04:44 WBC 9.1 (4.5-10.0) K/mm3 RBC 4.71 (4.2-5.4) M/mm3 Hgb 11.4 L (12.0-15.0) g/dL Hct 36.9 L (37.0-47.0) % MCV 78.3 L (80-100) fl MCH 24.2 L (26-34) pg MCHC 30.9 L (32-36) g/dl RDW 15.5 H (11.5-14.5) % Plt Count 252 D (150-375) k/mm3 MPV 10.0 (7.4-10.4) fl Immature Gran % (Auto) 0.2 (0-0.5) % Neut % (Auto) 69.2 (45.5-73.1) % Lymph % (Auto) 22.7 (18.3-44.2) % Riley % (Auto) 7.6 (2.6-8.5) % Eos % (Auto) 0.0 (0-4.4) % Baso % (Auto) 0.3 (0.2-1.2) % Lymph # (Auto) 2.07 (0.9-3.2) K/mm3 Riley # (Auto) 0.7 H (0.1-0.6) K/mm3 Eos # (Auto) 0.0 (0-0.3) K/mm3 Baso # (Auto) 0.0 (0.0-0.1) K/mm3 Abs Immat Gran (auto) 0.02 (0.00-0.031) K/mm3 Absolute Neuts (auto) 6.3 (1.3-6.7) K/mm3 Absolute Nucleated RBC 0.000 (0.0-0.012) K/mm3 Nucleated RBC % 0.0 (0.0-0.2) % Sodium 139 (137-145) mmol/L Potassium 3.7 (3.4-5.0) mmol/L Chloride 106 (98-107) mmol/L Carbon Dioxide 23 (22-30) mmol/L Anion Gap 10 (4-12) mmol/L BUN 9 (7-17) mg/dL Creatinine 0.57 L (0.7-1.0) mg/dL Estim Creat Clear Calc 116 ml/min Estimated GFR > 60 (59 - ) Glucose 108 (65-110) mg/dL Lactic Acid 1.1 (0.7-2.0) mmol/L Calcium 9.0 (8.4-10.2) mg/dL Magnesium 1.7 (1.6-2.3) mg/dL Total Bilirubin 0.6 (0.2-1.3) mg/dL AST 30 (14-36) U/L ALT 41 H (6-35) U/L Alkaline Phosphatase 65 (38-126) U/L Total Creatine Kinase 63 (30-135) U/L Total Protein 8.0 (6.3-8.2) g/dL Albumin 4.5 (3.5-5.1) g/dL TSH 2.970 (0.465-4.680) uIU/mL Urine Color Yellow (Yellow) Urine Appearance Clear (Clear) Urine pH 6.5 (5.0-9.0) Ur Specific Benson 1.012 (1.001-1.035) Urine Protein Negative (Negative) mg/dL Urine Glucose (UA) Negative (Negative) mg/dL Urine Ketones Negative (Negative) mg/dL Ur Blood (Man) Negative (Negative) Urine Nitrate Negative (Negative) Urine Bilirubin Negative (Negative) Urine Urobilinogen 0.2 (<2.0) mg/dL Leukocyte Esterase Rfl Negative (Negative) LOU/UL POC Urine HCG, Qual Negative (Negative) Salicylates < 1.0 L (2-20) mg/dL Urine Opiates Screen Negative (Negative) Urine Methadone Screen Negative (Negative) Acetaminophen < 10 L (10-30) ug/mL Ur Barbiturates Screen Negative (Negative) Ur Phencyclidine Scrn Negative (Negative) Ur Amphetamine Screen Negative (Negative) U Benzodiazepines Scrn Negative (Negative) Urine Cocaine Screen Negative (Negative) U Cannabinoids Screen Negative (Negative) Ethyl Alcohol < 10 (<10) mg/dL Influenza A (RT-PCR) Negative (Negative) Influenza B (RT-PCR) Negative (Negative) RSV (RT-PCR) Negative (Negative) SARS-CoV-2 RNA (RT-PCR) Negative (Negative) <Shaq Vuong MD - Last Filed: 10/12/24 19:13> Discharge Plan Discharge Clinical Impression: Anxiety, Acute confusion <Bolivar Teixeira MD - Last Filed: 10/12/24 06:00> Patient Disposition: Home, Self-Care <Bolivar Teixeira MD - Last Filed: 10/12/24 06:00> Condition: Stable <Bolivar Teixeira MD - Last Filed: 10/12/24 06:00> Instructions: Antibiotic Form <Bolivar Teixeira MD - Last Filed: 10/12/24 06:00> Additional Instructions: Have close follow-up with your physicians as scheduled. If you have any worsening symptoms then please call or return to the emergency department <Bolivar Teixeira MD - Last Filed: 10/12/24 06:00> Patient Language: Italian <Bolivar Teixeira MD - Last Filed: 10/12/24 06:00> Prescriptions: No Action triamcinolone acetonide 0.1 % cream 1 applic topical BID Qty: 15 0RF <Bolivar Teixeira MD - Last Filed: 10/12/24 06:00> Follow-up/Referrals: PHYSICIAN,FINANCIAL SALES ASSISTANT [Primary Care Provider] - <Bolivar Teixeira MD - Last Filed: 10/12/24 06:00>
[2024-10-12 05:12] VITALS: PULSE 138
[2024-10-12 05:18] LABS: Alanine Aminotransferase 41 U/L (6-35); Albumin Level 4.5 g/dL (3.5-5.1); Alkaline Phosphatase 65 U/L (38-126); Anion Gap 10 mmol/L (4-12); Aspartate Amino Transferase 30 U/L (14-36); Bilirubin,Total 0.6 mg/dL (0.2-1.3); Blood Urea Nitrogen 9 mg/dL (7-17); Carbon Dioxide 23 mmol/L (22-30); Chloride 106 mmol/L (98-107); Estimated CRCL calculation 116 ml/min; Estimated Glomerular Filt Rate > 60; Glucose 108 mg/dL (65-110); Magnesium 1.7 mg/dL (1.6-2.3); Potassium 3.7 mmol/L (3.4-5.0); Sodium 139 mmol/L (137-145)
[2024-10-12 05:28] LABS: Influenza A QL RT-PCR Negative (Negative); Influenza B QL RT-PCR Negative (Negative); RSV RNA, RT-PCR Negative (Negative); SARS-CoV-2 RNA PCR Negative (Negative)
[2024-10-12 05:29] LABS: Creatine Kinase 63 U/L (30-135)
[2024-10-12] MEDS: MAGNESIUM SULF 2 GM/WATER 50ML 2 GM/50 ML BAG IVPB (06:10)
[2024-10-12 06:26] VITALS: BP 129/78; PULSE 120; RESP 16; O2SAT 97
[2024-10-12 07:53] VITALS: BP 105/65; PULSE 91; RESP 15; O2SAT 99
--- NOTE | 2024-10-12 08:56 | PC.NURSE ---
Crisis here to eval pt , pt will go home with a safety plan.
[2024-10-12 09:29] VITALS: BP 104/74; PULSE 97; RESP 16; O2SAT 100
== END 2024-10-12 09:33 | disposition home or self-care (01) ==
PROVIDERS: Emergency Provider Emergency Medicine
DX: F41.9 Anxiety disorder, unspecified (principal); R41.0 Disorientation, unspecified; Z11.52 Encounter for screening for COVID-19
CPT/HCPCS: 36415; 70450; 71045; 80053; 80143; 80179; 80307; 81003; 81025; 82077; 82550; 83605; 83735; 84443; 85025; 87637; 93005; 96361; 96365; 99284; J3475; J7030

== ENCOUNTER 2025-02-25 17:19 | Outpatient (CLI) | payer OTHER, SELFPAY ==
--- NOTE | ~2025-02-25 | XR_ITS ---
Supine view of the abdomen Clinical history: Urinary calculus Findings: Bowel gas pattern is nonspecific. No evidence for obstruction or free air. No abnormal mass lesion or calcification is seen. Osseous structures are intact. Impression: No significant abnormality is seen. Reviewed, dictated and finalized at location . Impression: No significant abnormality is seen.
--- OUTSIDE RECORDS SUMMARY | 2025-02-25 17:28 | XMS_ITS | Clinical Summary ---
Author Organization [address] Address [address] [place] [id number] Care Team Providers Care Manufacturing Project Engineer Name Role Phone Unknown, Notinfile Primary Care Provider Unavail able Allergies No known active allergies Medications No known medications Active Problems No known active problems Social History Tobacco Use Types Packs/Day Years Used Date Smoking Tobacco: Never Assessed Comments Unknown Sex and Gender Information Value Date Recorded Sex Assigned at Not on file Legal Sex Female 7:34 PM WAREHOUSE INCENTIVE SELECTOR Gender Identity Not on file Sexual Orientation Not on file Obstetrics History Last Filed Vital Signs Vital Sign Reading Time Taken Comments Blood Pressure 118/72 09/28/2024 6:00 PM WAREHOUSE INCENTIVE SELECTOR Pulse 128 09/28/2024 6:00 PM WAREHOUSE INCENTIVE SELECTOR Temperature 37.8 C (100.1 F) 09/28/2024 6:00 PM WAREHOUSE INCENTIVE SELECTOR Respiratory Rate 20 09/28/2024 6:00 PM WAREHOUSE INCENTIVE SELECTOR Oxygen Saturation 98% 09/28/2024 6:00 PM WAREHOUSE INCENTIVE SELECTOR Inhaled Oxygen Concentration - - Weight 71.7 kg (158 lb) 09/28/2024 6:00 PM WAREHOUSE INCENTIVE SELECTOR Height - - Body Mass Index - [...] Well Visit/Exam 18-64 2018 Influenza Vaccine (#1) 2025 Pneumococcal vaccine <65 Aged Out No longer eligible based on patient's age to complete this topic Insurance [facility] [employer] Care Teams Manufacturing Project Engineer Relationship Specialty Start Date End Date Unknown, Notinfile PCP - General 09/17/24
--- OUTSIDE RECORDS SUMMARY | 2025-02-25 17:28 | XMS_ITS | Referral Summary ---
Author Organization [address] Address [address] [place] [id number] Care Team Providers Care Assembler Dielectric Heater Name Role Phone Unknown, Notinfile Primary Care Provider Unavail able Allergies No known active allergies Medications No known medications Active Problems No known active problems Social History Tobacco Use Types Packs/Day Years Used Date Smoking Tobacco: Never Assessed Comments Unknown Sex and Gender Information Value Date Recorded Sex Assigned at Not on file Legal Sex Female 7:34 PM BLACKSMITH HAMMER OPERATOR Gender Identity Not on file Sexual Orientation Not on file Last Filed Vital Signs Vital Sign Reading Time Taken Comments Blood Pressure 118/72 09/28/2024 6:00 PM BLACKSMITH HAMMER OPERATOR Pulse 128 09/28/2024 6:00 PM BLACKSMITH HAMMER OPERATOR Temperature 37.8 C (100.1 F) 09/28/2024 6:00 PM BLACKSMITH HAMMER OPERATOR Respiratory Rate 20 09/28/2024 6:00 PM BLACKSMITH HAMMER OPERATOR Oxygen Saturation 98% 09/28/2024 6:00 PM BLACKSMITH HAMMER OPERATOR Inhaled Oxygen Concentration - - Weight 71.7 kg (158 lb) 09/28/2024 6:00 PM BLACKSMITH HAMMER OPERATOR Height - - Body Mass Index - - Plan of Treatment Not on file Insurance [employer] [facility] HMO/PPO Address: [facility] [id number] [place] [address] Care Teams Assembler Dielectric Heater Relationship Specialty Start Date End Date Unknown, Notinfile PCP - General 09/17/24
== END 2025-02-25 17:20 | disposition home or self-care (01) ==
PROVIDERS: Visit Provider Nurse Practitioner Psychiatric/Mental Health
DX: N20.9 Urinary calculus, unspecified (principal)
CPT/HCPCS: 74018

== ENCOUNTER 2025-02-26 14:57 | Emergency (ER) | payer OTHER, SELFPAY ==
--- NOTE | ~2025-02-26 | CT_ITS ---
EXAMINATION: CT abdomen pelvis wo con DATE: 02/26/2025 15:43 INDICATION: Right flank pain TECHNIQUE: Computed tomography (CT) of the abdomen and pelvis was performed without intravenous contr ast. Automated exposure control and iterative reconstruction technique were employed. The dose-length product was 184.68 mGy-cm. COMPARISON: None FINDINGS: Lung bases are clear. Heart size is normal. No pericardial or pleural effusion. Liver, gallbladder, s pleen, pancreas, bilateral adrenal glands and kidneys are normal. No urolithiasis or hydronephrosis. Bladder, uterus and bilateral adnexa are unremarkable. No abnormal bowel wall thickening or obstructi on. The appendix is not definitively visualized. No pericecal inflammatory change to suggest acute ap pendicitis. No free intraperitoneal gas or fluid. No pathologically enlarged abdominal or pelvic lymp hadenopathy. Bones are unremarkable. IMPRESSION: 1. No acute intra-abdominal/pelvic process. Reviewed, dictated and finalized at location A.
[2025-02-26 15:03] VITALS: BP 118/80; PULSE 99; RESP 20; TEMP 36.9; O2SAT 100
--- NOTE | 2025-02-26 15:03 | ED_ITS ---
HPI - Abdominal Pain General Chief Complaint: Urogenital-Female Stated Complaint: right flank pain Time Seen by Provider: 02/26/25 17:05 Focused HPI: 24-year-old female presents to the ER complaining of right flank pain since yesterday. Patient is sent from clinic for further evaluation. Patient has a history of kidney stones says she passed well on her own a year ago. Patient also reports dysuria. Patient denies any fevers body aches, chills, nausea, vomiting, diarrhea, abdominal pain, difficulty breathing, chest pain, or other symptoms. GENERAL: Well-appearing, well-nourished, and in no acute distress. HEAD: Normocephalic, atraumatic. CHEST: Clear to auscultation. ?No respiratory distress. HEART: Regular rate and rhythm.? NEURO: ?Alert and oriented x3. GI: Right flank pain tenderness to palpation. Abdomen soft, nondistended, nontender. No rebound tenderness, no guarding. No palpable masses. Bowel sounds active. No CVA tenderness. Patient screened in triage and initial orders placed.? ?Additional care and disposition to be based upon?diagnostic testing and treatment. Related Data Allergies Allergy/AdvReac Type Severity Reaction Status Date / Time sulfamethoxazole (From Allergy Intermediate Rash Verified 02/26/25 17:43 Bactrim) trimethoprim (From Bactrim) Allergy Intermediate Rash Verified 02/26/25 17:43 PMFSH Social History Social History Substance use type: does not use Course Vital Signs Vital signs: Vital Signs Temperature 98.4 F 02/26/25 15:03 Pulse Rate 99 02/26/25 15:03 Respiratory Rate 20 02/26/25 15:03 Blood Pressure 118/80 02/26/25 15:03 Pulse Oximetry 100 02/26/25 15:03 Oxygen Delivery Room Air 02/26/25 15:03 Temperature 97.9 F 02/26/25 18:41 Pulse Rate 84 02/26/25 18:41 Respiratory Rate 14 02/26/25 18:41 Blood Pressure 101/76 02/26/25 18:41 Pulse Oximetry 100 02/26/25 18:41 Oxygen Delivery Room Air 02/26/25 16:45 MDM - Abdominal Pain Lab Data 02/26/25 15:32 02/26/25 15:32 Labs: Lab Results 02/26/25 02/26/25 Range/Units 15:31 15:32 WBC 8.6 (4.5-10.0) K/mm3 RBC 4.66 (4.2-5.4) M/mm3 Hgb 11.3 L (12.0-15.0) g/dL Hct 36.4 L (37.0-47.0) % MCV 78.1 L (80-100) fl MCH 24.2 L (26-34) pg MCHC 31.0 L (32-36) g/dl RDW 14.2 (11.5-14.5) % Plt Count 204 (150-375) k/mm3 MPV 10.2 (7.4-10.4) fl Immature Gran % (Auto) 0.2 (0-0.5) % Neut % (Auto) 65.8 (45.5-73.1) % Lymph % (Auto) 26.5 (18.3-44.2) % [place] % (Auto) 6.6 (2.6-8.5) % Eos % (Auto) 0.7 (0-4.4) % Baso % (Auto) 0.2 (0.2-1.2) % Lymph # (Auto) 2.28 (0.9-3.2) K/mm3 [place] # (Auto) 0.6 (0.1-0.6) K/mm3 Eos # (Auto) 0.1 (0-0.3) K/mm3 Baso # (Auto) 0.0 (0.0-0.1) K/mm3 Abs Immat Gran (auto) 0.02 (0.00-0.031) K/mm3 Absolute Neuts (auto) 5.7 (1.3-6.7) K/mm3 Absolute Nucleated RBC 0.000 (0.0-0.012) K/mm3 Nucleated RBC % 0.0 (0.0-0.2) % Sodium 135 L (137-145) mmol/L Potassium 3.7 (3.4-5.0) mmol/L Chloride 102 (98-107) mmol/L Carbon Dioxide 26 (22-30) mmol/L Anion Gap 7 (4-12) mmol/L BUN 9 (7-17) mg/dL Creatinine 0.56 L (0.7-1.0) mg/dL Estim Creat Clear Calc 111 ml/min Estimated GFR > 60 (59 - ) Glucose 101 (65-110) mg/dL Calcium 9.2 (8.4-10.2) mg/dL Total Bilirubin 0.4 (0.2-1.3) mg/dL AST 34 (14-36) U/L ALT 14 (6-35) U/L Alkaline Phosphatase 61 (38-126) U/L Total Protein 8.2 (6.3-8.2) g/dL Albumin 4.2 (3.5-5.1) g/dL Lipase 72 (23-300) U/L Urine Color Yellow (Yellow) Urine Appearance Clear (Clear) Urine pH 6.5 (5.0-9.0) Ur Specific [place] 1.004 (1.001-1.035) Urine Protein Negative (Negative) mg/dL Urine Glucose (UA) Negative (Negative) mg/dL Urine Ketones Negative (Negative) mg/dL Ur Blood (Man) Trace (Negative) Urine Nitrate Negative (Negative) Urine Bilirubin Negative (Negative) Urine Urobilinogen 0.2 (<2.0) mg/dL Add Ur Microanalysis Reviewed Leukocyte Esterase Rfl 3+ H (Negative) LOU/UL Urine RBC 0-2 (0-2) /hpf Urine WBC 21-50 H (0-3) /hpf Ur Squamous Epith Cells Few (Few) /hpf Urine Bacteria 1+ H /hpf Urine Casts 3-5 POC Urine HCG, Qual Negative (Negative) Imaging Data Radiologist's impression: ITS Impressions Abdomen/Pelvis CT 02/26/25 15:57 IMPRESSION: 1. No acute intra-abdominal/pelvic process. Discharge Plan Discharge Clinical Impression: Urinary tract infection, Flank pain Patient Disposition: Home Condition: Stable Instructions: Antibiotic Form, Urinary Tract Infection in Women (ED) Additional Instructions: Please return to the ER with any worsening symptoms. Follow-up with primary care provider as soon as possible. Take all medications as prescribed, including regularly scheduled medications. Patient Language: Cymraes Prescriptions: New cephalexin 500 mg capsule 500 mg PO Q8H 7 Days Qty: 21 0RF phenazopyridine [Pyridium] 200 mg tablet 200 mg PO TID Qty: 6 0RF No Action triamcinolone acetonide 0.1 % cream 1 applic topical BID Qty: 15 0RF Follow-up/Referrals: PHYSICIAN,[employer]ER [Primary Care Provider] - Juan Miguel Finch MD [Physician] - (primary care provider ) Stand Alone Forms: Work/School Release IP Time of Disposition: 18:00
--- OUTSIDE RECORDS SUMMARY | 2025-02-26 15:03 | XMS_ITS | Clinical Summary ---
Author Organization [address] Address [address] [place] [id number] Care Team Providers Care [employer] Name Role Phone Unknown, Notinfile Primary Care Provider Unavail able Allergies No known active allergies Medications No known medications Active Problems No known active problems Social History Tobacco Use Types Packs/Day Years Used Date Smoking Tobacco: Never Assessed Comments Unknown Sex and Gender Information Value Date Recorded Sex Assigned at Not on file Legal Sex Female 7:34 PM [employer] Gender Identity Not on file Sexual Orientation Not on file Obstetrics History Last Filed Vital Signs Vital Sign Reading Time Taken Comments Blood Pressure 118/72 09/28/2024 6:00 PM [employer] Pulse 128 09/28/2024 6:00 PM [employer] Temperature 37.8 C (100.1 F) 09/28/2024 6:00 PM [employer] Respiratory Rate 20 09/28/2024 6:00 PM [employer] Oxygen Saturation 98% 09/28/2024 6:00 PM [employer] Inhaled Oxygen Concentration - - Weight 71.7 kg (158 lb) 09/28/2024 6:00 PM [employer] Height - - Body Mass Index - [...] patient's age to complete this topic Insurance [facility] [employer] Care Teams [employer] Relationship Specialty Start Date End Date Unknown, Notinfile PCP - General 09/17/24
[2025-02-26 15:33] LABS: BEDSIDEPREGUCG Negative (Negative)
[2025-02-26 15:40] LABS: Hematocrit 36.4 % (37.0-47.0); Hemoglobin 11.3 g/dL (12.0-15.0); Immature Granulocyte Percent A 0.2 % (0-0.5); Lymphocytes Absolute Auto 2.28 K/mm3 (0.9-3.2); Mean Corpuscular HGB Conc 31.0 g/dl (32-36); Mean Corpuscular Hemoglobin 24.2 pg (26-34); Mean Corpuscular Volume 78.1 fl (80-100); Nucleated Red Blood Cells Absolute Auto 0.000 K/mm3 (0.0-0.012); Nucleated Red Blood Cells Perc 0.0 % (0.0-0.2); Platelet Count Result 204 k/mm3 (150-375); Red Blood Count 4.66 M/mm3 (4.2-5.4); White Blood Count 8.6 K/mm3 (4.5-10.0)
[2025-02-26 15:57] LABS: Add Urine Microscopic? YES; Appearance Urine Clear (Clear); Glucose Urine UA Negative (Negative); Leukocyte Esterase Ur 3+ LEU/UL (Negative); Need Manual Microscopic Reviewed; Nitrate Urine Negative (Negative); Specific Grav Ur 1.004 (1.001-1.035)
[2025-02-26 15:58] LABS: Alanine Aminotransferase 14 U/L (6-35); Albumin Level 4.2 g/dL (3.5-5.1); Alkaline Phosphatase 61 U/L (38-126); Anion Gap 7 mmol/L (4-12); Aspartate Amino Transferase 34 U/L (14-36); Bilirubin,Total 0.4 mg/dL (0.2-1.3); Blood Urea Nitrogen 9 mg/dL (7-17); Calcium 9.2 mg/dL (8.4-10.2); Carbon Dioxide 26 mmol/L (22-30); Chloride 102 mmol/L (98-107); Estimated CRCL calculation 111 ml/min; Estimated Glomerular Filt Rate > 60; Glucose 101 mg/dL (65-110); Lipase 72 U/L (23-300); Potassium 3.7 mmol/L (3.4-5.0); Sodium 135 mmol/L (137-145); Total Protein 8.2 g/dL (6.3-8.2)
[2025-02-26 16:45] VITALS: BP 121/79; PULSE 78; RESP 18; O2SAT 98
--- NOTE | 2025-02-26 17:31 | ED_ITS ---
HPI - Female Genitourinary General Chief complaint: Urogenital-Female Stated complaint: right flank pain Time Seen by Provider: 02/26/25 17:05 History of Present Illness HPI Narrative: Patient is a 24-year-old [place] female presents to the ER with right flank pain that started approximately 1 week ago. She reports the pain starts in her mid back and radiates down her right side. Patient denies any injury to the area, recent fevers, or abdominal pain. She reports she has a history of kidney stones. Patient endorses urinary symptoms including burning and urgency with urination. Related Data Allergies Allergy/AdvReac Type Severity Reaction Status Date / Time sulfamethoxazole (From Allergy Intermediate Rash Verified 02/26/25 17:43 Bactrim) trimethoprim (From Bactrim) Allergy Intermediate Rash Verified 02/26/25 17:43 Review of Systems 2 Review of Systems: All systems reviewed & are unremarkable except as noted in HPI and below PMFSH Social History Social History Substance use type: does not use Exam 2 Narrative: GENERAL: Well appearing, well-nourished, non-toxic, in no acute distress. HEAD: Normocephalic, atraumatic. NECK: Supple. No adenopathy, no masses. RESPIRATORY: Airway patent, respirations nonlabored. Clear to auscultation bilaterally, no rales, rhonchi, wheezing. CARDIOVASCULAR: Regular rate and rhythm without murmurs, rubs, or gallops. Peripheral pulses 2+ and equal bilaterally. + R CVA tenderness ABDOMINAL: Soft, nontender, nondistended, no hepatosplenomegaly. Normoactive BS. MUSCULOSKELETAL: Moves all extremities. Strength/ROM intact without gross deformities. SKIN: Warm, dry, normal color. No rashes. NEURO: A&O X3. Speech clear. Cranial nerves II-XII intact. No ataxic movements. PSYCHIATRIC: Appropriate mood and affect. Normal interaction. Course Vital Signs Vital signs: Vital Signs Temperature 36.9 C 02/26/25 15:03 Pulse Rate 99 02/26/25 15:03 Respiratory Rate 20 02/26/25 15:03 Blood Pressure 118/80 02/26/25 15:03 Pulse Oximetry 100 02/26/25 15:03 Oxygen Delivery Room Air 02/26/25 15:03 Temperature 36.9 C 02/26/25 15:03 Pulse Rate 78 02/26/25 16:45 Respiratory Rate 18 02/26/25 16:45 Blood Pressure 121/79 02/26/25 16:45 Pulse Oximetry 98 02/26/25 16:45 Oxygen Delivery Room Air 02/26/25 16:45 MDM - Female Genitourinary MDM Narrative Medical decision making narrative: Patient is a 24-year-old [place] female presents to the ER with right flank pain that started approximately 1 week ago. She reports the pain starts in her mid back and radiates down her right side. Patient denies any injury to the area, recent fevers, or abdominal pain. She reports she has a history of kidney stones. Patient endorses urinary symptoms including burning and urgency with urination. Labs Ordered: CBC, CMP, UA Imaging Ordered: CT abdomen pelvis Medications Ordered: 1 L normal saline IV bolus, Toradol, Keflex p.o. Results: Patient's CT scan indicates Lung bases are clear. Heart size is normal. No pericardial or pleural effusion. Liver, gallbladder, spleen, pancreas, bilateral adrenal glands and kidneys are normal. No urolithiasis or hydronephrosis. Bladder, uterus and bilateral adnexa are unremarkable. No abnormal bowel wall thickening or obstruction. The appendix is not definitively visualized. No pericecal inflammatory change to suggest acute appendicitis. No free intraperitoneal gas or fluid. No pathologically enlarged abdominal or pelvic lymphadenopathy. Bones are unremarkable. Diagnosis: Urinary tract infection Patient Education/Shared MDM: Results of lab work and imaging shared with patient. She endorses improvement of symptoms following medication administration. Patient strongly advised to maintain hydration status upon discharge and follow-up with her PCP as soon as possible. She will be discharged home with a prescription for Keflex. Strict return precautions provided. Patient verbalized understanding and is in agreement with plan. Vital signs stable at time of discharge. All questions answered. Differential Diagnosis Differential diagnosis: Likely urinary tract infection and other (Pyelonephritis, kidney stone) Lab Data Attestation: I reviewed the patient's lab results. 02/26/25 15:32 02/26/25 15:32 Labs: Lab Results 02/26/25 02/26/25 Range/Units 15:31 15:32 WBC 8.6 (4.5-10.0) K/mm3 RBC 4.66 (4.2-5.4) M/mm3 Hgb 11.3 L (12.0-15.0) g/dL Hct 36.4 L (37.0-47.0) % MCV 78.1 L (80-100) fl MCH 24.2 L (26-34) pg MCHC 31.0 L (32-36) g/dl RDW 14.2 (11.5-14.5) % Plt Count 204 (150-375) k/mm3 MPV 10.2 (7.4-10.4) fl Immature Gran % (Auto) 0.2 (0-0.5) % Neut % (Auto) 65.8 (45.5-73.1) % Lymph % (Auto) 26.5 (18.3-44.2) % [place] % (Auto) 6.6 (2.6-8.5) % Eos % (Auto) 0.7 (0-4.4) % Baso % (Auto) 0.2 (0.2-1.2) % Lymph # (Auto) 2.28 (0.9-3.2) K/mm3 [place] # (Auto) 0.6 (0.1-0.6) K/mm3 Eos # (Auto) 0.1 (0-0.3) K/mm3 Baso # (Auto) 0.0 (0.0-0.1) K/mm3 Abs Immat Gran (auto) 0.02 (0.00-0.031) K/mm3 Absolute Neuts (auto) 5.7 (1.3-6.7) K/mm3 Absolute Nucleated RBC 0.000 (0.0-0.012) K/mm3 Nucleated RBC % 0.0 (0.0-0.2) % Sodium 135 L (137-145) mmol/L Potassium 3.7 (3.4-5.0) mmol/L Chloride 102 (98-107) mmol/L Carbon Dioxide 26 (22-30) mmol/L Anion Gap 7 (4-12) mmol/L BUN 9 (7-17) mg/dL Creatinine 0.56 L (0.7-1.0) mg/dL Estim Creat Clear Calc 111 ml/min Estimated GFR > 60 (59 - ) Glucose 101 (65-110) mg/dL Calcium 9.2 (8.4-10.2) mg/dL Total Bilirubin 0.4 (0.2-1.3) mg/dL AST 34 (14-36) U/L ALT 14 (6-35) U/L Alkaline Phosphatase 61 (38-126) U/L Total Protein 8.2 (6.3-8.2) g/dL Albumin 4.2 (3.5-5.1) g/dL Lipase 72 (23-300) U/L Urine Color Yellow (Yellow) Urine Appearance Clear (Clear) Urine pH 6.5 (5.0-9.0) Ur Specific [place] 1.004 (1.001-1.035) Urine Protein Negative (Negative) mg/dL Urine Glucose (UA) Negative (Negative) mg/dL Urine Ketones Negative (Negative) mg/dL Ur Blood (Man) Trace (Negative) Urine Nitrate Negative (Negative) Urine Bilirubin Negative (Negative) Urine Urobilinogen 0.2 (<2.0) mg/dL Add Ur Microanalysis Reviewed Leukocyte Esterase Rfl 3+ H (Negative) LOU/UL Urine RBC 0-2 (0-2) /hpf Urine WBC 21-50 H (0-3) /hpf Ur Squamous Epith Cells Few (Few) /hpf Urine Bacteria 1+ H /hpf Urine Casts 3-5 POC Urine HCG, Qual Negative (Negative) Imaging Data Attestation: I personally reviewed and interpreted this imaging study as follows: Radiologist's impression: Impressions Abdomen/Pelvis CT 02/26/25 15:57 IMPRESSION: 1. No acute intra-abdominal/pelvic process. Discharge Plan Discharge Clinical Impression: Urinary tract infection, Flank pain Patient Disposition: Home Condition: Stable Instructions: Antibiotic Form, Urinary Tract Infection in Women (ED) Additional Instructions: Please return to the ER with any worsening symptoms. Follow-up with primary care provider as soon as possible. Take all medications as prescribed, including regularly scheduled medications. Patient Language: Niuean Prescriptions: New cephalexin 500 mg capsule 500 mg PO Q8H 7 Days Qty: 21 0RF phenazopyridine [Pyridium] 200 mg tablet 200 mg PO TID Qty: 6 0RF No Action triamcinolone acetonide 0.1 % cream 1 applic topical BID Qty: 15 0RF Follow-up/Referrals: PHYSICIAN,AIRCRAFT ENGINE INSTALLER [Primary Care Provider] - Juan Miguel Finch MD [Physician] - (primary care provider ) Stand Alone Forms: Work/School Release IP Time of Disposition: 18:00
[2025-02-26] MEDS: SODIUM CHLORIDE 0.9% IV 1,000 ML 999 ML IV CONT (17:38)
[2025-02-26] MEDS: CEPHALEXIN 500 MG CAPSULE PO (17:38)
[2025-02-26] MEDS: KETOROLAC 15 MG/ML VIAL (*BKC) IV PUSH (17:38)
--- OUTSIDE RECORDS SUMMARY | 2025-02-26 18:10 | XMS_ITS | Clinical Summary ---
Author Organization [address] Address [address] [place] [id number] Care Team Providers Care [employer] Name Role Phone Unknown, Notinfile Primary Care Provider Unavail able Allergies No known active allergies Medications No known medications Active Problems No known active problems Social History Tobacco Use Types Packs/Day Years Used Date Smoking Tobacco: Never Assessed Comments Unknown Sex and Gender Information Value Date Recorded Sex Assigned at Not on file Legal Sex Female 7:34 PM [employer] Gender Identity Not on file Sexual Orientation Not on file Obstetrics History Last Filed Vital Signs Vital Sign Reading Time Taken Comments Blood Pressure 118/72 09/28/2024 6:00 PM [employer] Pulse 128 09/28/2024 6:00 PM [employer] Temperature 37.8 C (100.1 F) 09/28/2024 6:00 PM [employer] Respiratory Rate 20 09/28/2024 6:00 PM [employer] Oxygen Saturation 98% 09/28/2024 6:00 PM [employer] Inhaled Oxygen Concentration - - Weight 71.7 kg (158 lb) 09/28/2024 6:00 PM [employer] Height - - Body Mass Index - [...] to complete this topic Insurance [facility] [employer] Care Teams Head Of [employer]s Relationship Specialty Start Date End Date Unknown, Notinfile PCP - General 09/17/24
[2025-02-26 18:41] VITALS: BP 101/76; PULSE 84; RESP 14; TEMP 36.6; O2SAT 100
== END 2025-02-26 18:42 | disposition home or self-care (01) ==
PROVIDERS: Emergency Provider Registered Nurse
DX: N39.0 Urinary tract infection, site not specified (principal); Z87.442 Personal history of urinary calculi
CPT/HCPCS: 36415; 74176; 80053; 81001; 81025; 83690; 85025; 87086; 96361; 96374; 99284; A9270; J1885; J7030